=== PATIENT | male | born 1985 | race Caucasian/White ===

== ENCOUNTER 2023-01-05 18:56 | Emergency (ER) | payer OTHER, BC, SELFPAY ==
--- NOTE | 2023-01-05 19:01 | ED.GENADULT ---
HPI - General Adult General Chief complaint: Upper Respiratory Infection Stated complaint: mouth and tongue bleeding Source: patient and RN notes reviewed History of Present Illness HPI narrative: 37-year-old male presents to urgent care with complaints of a bleeding mouth today. Patient states 2 weeks ago he had a cough and some sort of lung infection? that resolved on its own. Patient states 4 days ago he began having a sore throat and states he has had burning in his mouth and throat ever since. Patient states it feels like he has eaten a hot pepper. Patient states today he noticed he had bright red blood in his mouth, unsure if it was coming from his gums, tongue, or other area. Pt states he swished with salt water and his bleeding has resolved. Patient denies any dental pain dental issues recently. Denies any fevers, chills, shortness of breath, chest pain, or vomiting. Related Data Allergies Allergy/AdvReac Type Severity Reaction Status Date / Time No Known Allergies Allergy Verified 01/05/23 19:03 Review of Systems Review of Systems: CONSTITUTIONAL: Denies fever, chills, or sweats. EYES: Denies visual changes, redness, or discharge. ENT: Denies otalgia and sore throat CARDIOVASCULAR: Denies chest pain, palpitations, or edema. RESPIRATORY: Denies cough or dyspnea. GASTROINTESTINAL: Denies abdominal pain, nausea, vomiting, or diarrhea. GENITOURINARY: Denies dysuria or hematuria. SKIN: Denies rash or itching. MUSCULOSKELETAL: Denies back pain, joint pain, or myalgia. NEUROLOGIC: Denies headache, numbness, or weakness. PMFSH Comments At the time of my signature, I reviewed and agree with the nursing past medical, surgical, social, and family history. There is no relevant family history pertinent to the patient complaint. Exam Narrative: GENERAL: This is a well-nourished, well-developed patient, in no apparent distress. HEAD: normocephalic, atraumatic. EYES: Sclera clear/white. Vision is grossly intact. EARS: External ears normal, auditory canals clear and without drainage, TMs normal without perforation. Hearing grossly intact. NOSE: External nose normal with no obvious nasal discharge, nares without redness, no rhinorrhea. THROAT: Mucous membranes dry, posterior pharynx erythemic. No bleeding or ulcers noted. Poor dentition noted. NECK: Neck supple, non-tender without lymphadenopathy, masses or thyromegaly. CARDIOVASCULAR: Regular rate and rhythm without murmurs, gallops, or rubs. RESPIRATORY: Clear to auscultation. Breath sounds equal bilaterally. No wheezes, rales, or rhonchi. GASTROINTESTINAL: Abdomen soft, non-tender, nondistended. Bowel sounds are active. No hepato-splenomegaly, or palpable masses. No guarding. SKIN: warm, intact with no suspicious lesions or rash, good texture and turgor. NEURO: awake, alert, and oriented to person, place and time. There were no obvious focal neurologic abnormalities. Patient appears very anxious. Course Course Level of Care: Express Care Visit Vital Signs Vital signs: Vital Signs Temperature 98.9 F 01/05/23 19:04 Pulse Rate 108 H 01/05/23 19:04 Respiratory Rate 16 01/05/23 19:04 Blood Pressure 155/93 H 01/05/23 19:04 Pulse Oximetry 98 01/05/23 19:04 Oxygen Delivery Room Air 01/05/23 19:04 Temperature 98.9 F 01/05/23 19:04 Pulse Rate 108 H 01/05/23 19:04 Respiratory Rate 16 01/05/23 19:04 Blood Pressure 155/93 H 01/05/23 19:04 Pulse Oximetry 98 01/05/23 19:04 Oxygen Delivery Room Air 01/05/23 19:04 Reviewed Medical Decision Making MDM Narrative Medical decision making narrative: Patient was instructed to follow-up with a primary care physician and dentist. Differential Diagnosis Differential Diagnosis: Gingivitis, dental abscess, strep throat Vital Signs Vital Signs: Vital Signs Temperature 98.9 F 01/05/23 19:04 Pulse Rate 108 H 01/05/23 19:04 Respiratory Rate 01/05/23 19:04 Blood Pressure 155/93 H 03/1
[2023-01-05 19:04] VITALS: BP 155/93; PULSE 108; RESP 16; TEMP 37.2; O2SAT 98
== END 2023-01-05 20:08 | disposition home or self-care (01) ==
PROVIDERS: Emergency Provider Nurse Practitioner Family; PCP Emergency Medicine
DX: K05.10 Chronic gingivitis, plaque induced (principal); J02.9 Acute pharyngitis, unspecified
CPT/HCPCS: 87081; 87880; 99213; G0463